=== PATIENT | male | born 1940 | race Caucasian/White ===

== ENCOUNTER 2022-02-06 10:47 | Inpatient (IN) | payer MEDICARE, OTHER ==
[~2022-02-06] VITALS: Ht 185.5 cm; Wt 85.2 kg
[~2022-02-06 10:47] MED LIST: ADVIL 200MG TA200 MG PO; ALEVE 220MG220 MG PO; ASPI325T6 PO; CEPHALEXIN500 M1 PO; FOLIC ACID 11 MG/TA1 PO; IRON324 M1 PO; JANUMET 1000 MG1 TA1 PO; METHOTREXA2.5 MG/TAB PO; MILK OF MA400 MG/5 M PO; NORCO 325 MG-7.1 TAB PO; PHENERGAN 25 TA25 MG PO; PREDNISONE 5MG5 MG; SENOKOT8.6 MG PO; VITAMIN C500 MG PO; ZESTRIL 5MG5 MG PO
[2022-02-20] VITALS (10 sets, daily range): BP systolic 139–168; BP diastolic 55–84; PULSE 65–100; TEMP 97.9–98.5
[2022-02-20] MEDS ORDERED: PREDNISONE 5MG5 MG PO (06:38)
[2022-02-20] MEDS ORDERED: PARLODEL 2.5MG2.5 MG PO (06:39)
[2022-02-20] MEDS ORDERED: ORENCIA250 MG IV (06:40)
--- NOTE | 2022-02-20 13:00 | NUR ---
Patient arrived to room 328 from PACU at this time, alert/oriented, vital signs stable, pain moderate and will continue to monitor, tolerating Sip/chips at this time
--- NOTE | 2022-02-20 14:10 | NUR ---
Patient had some nausea/ releif with Zofran, administered some PO pain meds, Vital signs remain stable
--- NOTE | 2022-02-20 21:30 | NUR ---
Pt. sitting up in bed. Pt. si A&Ox3, assessment complete. INT to lt. wrist patent. Dressing to lt. hip CDI. Pt. reports pain at a 6 on pain scale, gave pain meds per orders. Pt. denies further needs, call light within reach.
[2022-02-21 03:51] VITALS: BP 156/51; PULSE 75; TEMP 98
[2022-02-21 06:21] LABS: HEMATOCRIT 28.7 % (42.0-52.0); HEMOGLOBIN 9.2 g/dl (13.5-18.0)
[2022-02-21 08:00] VITALS: BP 138/53; PULSE 70; TEMP 98.1
--- NOTE | 2022-02-21 09:33 | NUR ---
Initial visit; Patient a very pleasant snowden who visited and thanked Supervisor Ovens for stopping in. Supervisor Ovens let him know of the availability of spiritual care. He said [facility] [place] the road from his house and so he is "ok."
--- NOTE | 2022-02-21 10:41 | NUR ---
PT RESTING IN RECLINER AFTER WORKING WITH THERAPY THIS AM. RICKIE DIEGO FOR ORTHO IN TO SEE PT THIS AM. PAIN CONTROLLED WITH PO MEDS. DRESSING TO LEFT HIP CDI. POSSIBLE DISCHARGE LATER THIS PM.
[2022-02-21 11:23] VITALS: BP 128/52; PULSE 66; TEMP 97.8
--- NOTE | 2022-02-21 12:37 | NUR ---
field crop farmworker met with patient to discuss discharge plan. Patient currently lives with his daughter Maggie([phone]) in [place], [place]. Patient reports that he is independent with his ADL's. He has a FWW that he uses to assist with ambulations. PCP is Dr. Olga Johnson and he uses [facility] pharmacy in [place] for perscriptions with no cost difficulty. Patient states he has a DPOA-HC established listing his daughter Maggie. When asked where his out patient therapy was set up at he stated that is was at the "[facility] in [place]". ([facility]) [facility]
[2022-02-21 16:00] VITALS: BP 146/55; PULSE 65; TEMP 96.8
[2022-02-21 20:09] VITALS: BP 172/60; PULSE 63; TEMP 97.6
[2022-02-22 00:08] VITALS: BP 152/57; PULSE 67; TEMP 98.4
--- NOTE | 2022-02-22 03:49 | NUR ---
Report received from day shift nurse, TARAH Lester. Patient is recovering from a total left hip repair. Full body assessment completed and vital signs are WNL. Patient has been tolerating oral foods and medications well. Patient is scheduled to be discharged 02/22/22. Patient denies having pain at this time, will continue to monitor. Call light within reach.
[2022-02-22 03:53] VITALS: BP 158/61; PULSE 67; TEMP 98.8
[2022-02-22 07:18] VITALS: BP 146/78; PULSE 76; TEMP 98.3
[2022-02-22] MEDS ORDERED: ASPI325T6 PO (11:35)
[2022-02-22] MEDS ORDERED: ROXICODONE 55 MG/TAB PO (11:36)
[2022-02-22] MEDS ORDERED: ULTRAM 50MG TAB50 MG PO (11:37)
[2022-02-22] MEDS ORDERED: SENOKOT S 50 MG1 TAB PO (11:37)
[2022-02-22 12:55] VITALS: BP 141/48; PULSE 72; TEMP 97.8
[2022-02-22 16:27] VITALS: BP 155/60; PULSE 65
--- NOTE | 2022-02-22 19:00 | NUR ---
discharge instructions reviewed with pt. pt left unit per wheel chair with staff and family.
== END 2022-02-22 18:20 | disposition home or self-care (01) | DRG 470 ==
LOC: INPTSU 02-20 06:03 → SURG 02-20 06:03
PROVIDERS: ADMIT Orthopaedic Surgery
PROC: 0SRB04Z Replacement of Left Hip Joint with Ceramic on Polyethylene Synthetic Substitute, Open Approach (ICD-10-PCS; principal; 2022-02-20 10:15)
DX: M16.12 Unilateral primary osteoarthritis, left hip (principal)
CPT/HCPCS: A4314; A9284; C1713; C1776; J0360; J0690; J1170; J2270; J2405; J2704; J3010; J7120; J7512